=== PATIENT | male | born 1970 | race Caucasian/White ===

== ENCOUNTER 2016-12-09 06:08 | Inpatient (IN) | payer BC ==
[2016-11-25 11:14] VITALS: BMI 26.0
--- NOTE | 2016-11-25 11:40 | PAT Medication Instructions ---
Service Date Nov 25, 2016. Current Home Medication List Buprenorphine Hcl-Naloxone Hcl (Suboxone 8-2 Mg), 1 TAB SL NOON Citalopram Hydrobromide (Citalopram Hydrobromide), 1 TAB PO QAM Gabapentin (Neurontin), 300 MG PO TID Pantoprazole (Protonix), 40 MG PO QAM Ranitidine (Zantac), 300 MG PO HS PRN for Indigestion Zolpidem Tartrate (Ambien), 10 MG PO HS Medication Instructions For Your Scheduled Surgery - Check with surgeon/Dr. Cunningham for instructions: Buprenorphine Hcl-Naloxone Hcl (Suboxone 8-2 Mg), 1 TAB SL NOON - Take the following medications the morning of surgery with a sip of water: Gabapentin (Neurontin), 300 MG PO TID Pantoprazole (Protonix), 40 MG PO QAM Citalopram Hydrobromide (Citalopram Hydrobromide), 1 TAB PO QAM - Take the following medications as scheduled the night before surgery: Zolpidem Tartrate (Ambien), 10 MG PO HS Ranitidine (Zantac), 300 MG PO HS PRN for Indigestion (if needed) Gabapentin (Neurontin), 300 MG PO TID If you have any questions please call us at [phone] or [phone] or [phone]
[2016-11-25 12:11] LABS: BASO % 0.5 %; BASO ABS # 0.02 K/uL (0-0.2); COMPLETE YES; EOS % 1.1 %; HEMATOCRIT 40.9 % (42-52); IG% 0.2 %; LYMPH ABS # 1.45 K/uL (1.2-3.4); MEAN CELL VOLUME 90.1 fL (80-100); MEAN CORPUSCULAR HEMOGLOBIN 31.5 pg (25-34); MEAN PLATELET VOLUME 10.6 fL (7.4-10.4); MONO % 7.5 %; NEUT % 57.7 %; PLATELET COUNT 238 K/uL (130-400); RED BLOOD COUNT 4.54 M/uL (4.7-6.1); WHITE BLOOD COUNT 4.39 K/uL (4.8-10.8)
[2016-11-25 12:14] LABS: URINE APPEARANCE CLEAR (CLEAR); URINE BILIRUBIN NEG (NEG); URINE COLOR DK YELLOW; URINE NITRITE NEG (NEG); URINE SPECIFIC GRAVITY 1.028 (1.000-1.030); UROBILINOGEN NEG (NEG); ZZUR CULT IF INDIC CLEAN CATCH NO
--- NOTE | 2016-11-25 12:17 | DIAGNOSTIC IMAGING REPORT ---
CHEST 2 VIEWS ROUTINE CLINICAL HISTORY: 45 years-old Male presenting with preoperative assessment. TECHNIQUE: PA and lateral views of the chest were obtained. COMPARISON: None. FINDINGS: Cardiomediastinal silhouette normal. Lungs and pleural spaces clear. Osseous structures normal. Upper abdomen normal. IMPRESSION: 1. No acute cardiopulmonary disease. Electronically signed by: Terrell Batista M.D. 11/25/2016 12:16 PM Dictated Date/Time: 11/25/2016 12:16 PM
[2016-11-25 12:18] LABS: MANUAL MICROSCOPIC REQUIRED? NO; REVIEW REQ? NO
[2016-11-25 14:07] LABS: BUN/CREATININE RATIO 19.5 (10-20); CALCIUM 9.2 mg/dl (8.5-10.1); POTASSIUM 4.3 mmol/L (3.5-5.1)
[2016-12-09] VITALS (16 sets, daily range): BP systolic 143–186; BP diastolic 83–105; PULSE 63–93; TEMP 36.2–36.9; O2SAT 91–98; Ht 182.9 cm; Wt 89.2 kg
[~2016-12-09] VITALS: Ht 182.9 cm; Wt 89.2 kg
[~2016-12-09 06:08] MED LIST: BUPR1SUB23 SL; CEFAZOLIN 2000 MG/60 ML D5W IV SCH; CITA20TA4 PO; GABA-113 PO; LACTATED RINGER'S 1000ML 1,000 ML IV SCH; PANT40TA PO; RANI300T2 PO; ZOLP10TA PO
[2016-12-09] MEDS ORDERED: FENTANYL CITRATE INJ 50 MCG/1 ML 2 ML VIAL ONE ×6 (06:37→09:31)
[2016-12-09] MEDS ORDERED: MIDAZOLAM HCL 1 MG/ML 2ML VIAL ONE (06:37)
[2016-12-09] MEDS ORDERED: SODIUM CHLORIDE 0.9% PF 50 ML VIAL ONE (06:53)
[2016-12-09] MEDS ORDERED: BACITRACIN 50000 UNIT VIAL ONE (06:53)
--- NOTE | 2016-12-09 07:36 | History and Physical ---
History & Physical Date Dec 09, 2016. Chief Complaint Neck and arm pain History of Present Illness The patient is a 45 year old male with complaints of Additional History Hepatic Disease: No Endocrine Disorder: No Kidney Disease: No Hypertension: No Heart Disease: No Bleeding Tendencies: No Infectious Diseases: No Allergies Coded Allergies: Azithromycin (Verified Allergy, Unknown, SEVERE GI UPSET AND RASH, 12/09/16) Nitroglycerin (Verified Allergy, Unknown, SEVERE HEADACHE AND SYNCOPE, 12/09) Home Medications Scheduled Buprenorphine Hcl-Naloxone Hcl (Suboxone 8-2 Mg), 1 TAB SL NOON Citalopram Hydrobromide (Citalopram Hydrobromide), 1 TAB PO QAM Gabapentin (Neurontin), 300 MG PO TID Pantoprazole (Protonix), 40 MG PO QAM Zolpidem Tartrate (Ambien), 10 MG PO HS Scheduled PRN Ranitidine (Zantac), 300 MG PO HS PRN for Indigestion Physical Examination Skin: warm/dry, no rash Eyes: normal inspection, EOMI, sclerae normal ENT: normal ENT inspection, pharynx normal Head: normocephalic, atraumatic Neck: supple, no adenopathy, trachea midline Respiratory/Chest: lungs clear, normal breath sounds, no respiratory distress Cardiovascular: regular rate, rhythm, no edema, no murmur Abdomen / GI: normal bowel sounds, non tender Back: normal inspection Extremities: normal inspection, normal range of motion Neurologic/Psych: no motor/sensory deficits, alert, normal reflexes, oriented x 3 Diagnosis Cervical spinal stenosis Plan of Treatment ACDF C3 4
--- NOTE | 2016-12-09 07:36 | History & Physical Bridge Note ---
H&P Re-Evaluation Bridge Note: I have examined the patient, reviewed the History & Physical and in the interval since the performance of the History & Physical I have noted the following changes of clinical significance: No changes noted
[2016-12-09] MEDS ORDERED: HYDROmorphone INJ 2 MG/ML SYR/VIAL ONE ×2 (08:09→09:09)
[2016-12-09] MEDS ORDERED: ROCURONIUM BROMIDE 10 MG/ML 5 ML VIAL IV ONE (08:31)
[2016-12-09] MEDS ORDERED: DEXAMETHASONE SOD INJ 4 MG/ML VIAL ONE (08:31)
[2016-12-09] MEDS ORDERED: LIDOCAINE HCL 2% 2 ML VIAL (20MG/ML) ONE (08:31)
[2016-12-09] MEDS ORDERED: ONDANSETRON INJ 2 MG/ML 2 ML VIAL ONE ×3 (08:31→09:25)
[2016-12-09] MEDS ORDERED: PROPOFOL IV EMULSION 10 MG/ML 20 ML VIAL IV ONE ×2 (08:31→11:42)
[2016-12-09] MEDS ORDERED: FLOSEAL HEMOSTATIC MATRIX 5ML TOP ONE (09:06)
[2016-12-09] MEDS ORDERED: METOCLOPRAMIDE HCL INJ 5 MG/ML 2 ML VIAL ONE (09:18)
--- NOTE | 2016-12-09 09:22 | DIAGNOSTIC IMAGING REPORT ---
CERVICAL 2 OR 3 VIEWS CLINICAL HISTORY: ACDF C3-4 fusion TECHNIQUE: Image intensifier COMPARISON STUDY: None FINDINGS: Image intensifier utilized for an anterior C3-C4 fusion IMPRESSION: Image intensifier utilized for an anterior C3-C4 fusion The above report was generated using voice recognition software. It may contain grammatical, syntax or spelling errors. Electronically signed by: Ren Fernandez M.D. 12/09/2016 9:20 AM Dictated Date/Time: 12/09/2016 9:20 AM
[2016-12-09] MEDS ORDERED: NEOSTIGMINE METHYLSULFATE 1 MG/ML 10ML VIAL ONE (09:25)
[2016-12-09] MEDS ORDERED: ESMOLOL HCL 10 MG/ML 10 ML VIAL ONE (09:25)
[2016-12-09] MEDS ORDERED: GLYCOPYRROLATE INJ 0.2 MG/ML VIAL ONE (09:25)
--- NOTE | 2016-12-09 09:25 | [facility] Operative Report ---
Operative Report Operative Date Dec 09, 2016. Pre-Operative Diagnosis Cervical Spinal Stenosis Post-Operative Diagnosis Cervical Spinal Stenosis Procedure(s) Performed #1 anterior cervical discectomy bilateral foraminotomies C3 4. #2 anterior cervical arthrodesis C3 4. #3 placement of cortical allograft 7 mm in height filled with DBM C3 4. #4 application of lopez plate and screws across C3 4. Surgeon Dr. Pee Davis [employer] Project Manager Surgeon(s) Alpa Zuluaga PA-C Estimated Blood Loss 10ml Findings Cervical spinal stenosis Specimens None per surgeon Description of Procedure Patient was met with preoperatively case discussed all questions are dressed. That point patient was taken back to the operative suite after undergoing successful intubation placed in a supine position the Nicolas table head in [place] headholder. All bony prominences well-padded eyes inspected to ensure no external pressure. This point the anterior cervical spine was prepped and draped in normal sterile fashion. With the assistance of fluoroscopy identified the C3 4 disc space. A transverse incision was placed on the right anterior aspect of the cervical spine overlying this region. Sharp dissection with the assistance of bipolar electrocautery was performed onto an exposing the anterior cervical spine at C3 4. Self-retaining retractors placed. A complete discectomy of C3 4 was then performed out to the uncovertebral joints bilaterally. [place] distracting pins were utilized to assist us no visualization. I did remove all posterior annular fibers and longitudinal ligament performed bilateral foraminotomies. Endplates were then burred to subcortical bleeding bone and a 7 mm cortical R graft filled with DBM tapped in position. Distracting apparatus was removed. All anterior aspect burred to a smooth cortical surface. Lopez plate and screws applied with the assistance of fluoroscopy. Incision was in copious irrigated explored to ensure there is no damage to signing structures remaining bleeding. 10 round KELLY drain inserted. Incision closed with 2-0 Vicryl subcutaneous C 4 Monocryl for final skin closure. Steri-Strips sterile dressing placed. Patient we can take PACU stable condition. Please note Alpa Porter was present throughout the entire procedure involved in patient positioning complex portions of the procedure and final skin closure. I attest to the content of the Intraoperative Record and any orders documented therein. Any exceptions are noted below.
[2016-12-09] MEDS ORDERED: LORAZEPAM INJ 0.5 MG in SYRINGE 0.75 ML IV PRN (09:30)
[2016-12-09] MEDS ORDERED: ACETAMINOPHEN IV 100 ML IV PRN (09:30)
[2016-12-09] MEDS ORDERED: RANITIDINE HCL 150 MG TAB PO PRN (09:30)
[2016-12-09] MEDS ORDERED: ONDANSETRON INJ 2 MG/ML 2 ML VIAL IV PRN ×2 (09:30→09:45)
[2016-12-09] MEDS ORDERED: NALOXONE HCL 0.4 MG/1 ML VIAL/CARP IV PRN (09:30)
[2016-12-09] MEDS ORDERED: RACEPINEPHRINE 2.25% NEBU SOLN 0.5 ML VIAL INH PRN (09:30)
[2016-12-09] MEDS ORDERED: DEXAMETHASONE INJ 8 MG in SYRINGE 0 ML IV PRN (09:30)
[2016-12-09] MEDS ORDERED: MAGNESIUM HYDROXIDE SUSP 30 ML UDC PO PRN (09:30)
[2016-12-09] MEDS ORDERED: DO NOT ADMINISTER PNEUMOCOCCAL VACCINE PRN ×2 (09:30)
[2016-12-09] MEDS ORDERED: DiphenhydrAMINE HCL 50 MG/ML VIAL IV PRN ×3 (09:30→23:00)
[2016-12-09] MEDS ORDERED: LORAZEPAM 0.5 MG TAB PO PRN (09:30)
[2016-12-09] MEDS ORDERED: DO NOT ADMINISTER FLU VACCINE PRN ×3 (09:30)
[2016-12-09] MEDS ORDERED: HYDROmorphone INJ 0.5 MG/0.5 ML SYR IV PRN (09:30)
[2016-12-09] MEDS ORDERED: LABETALOL HCL IV 5 MG/ML 20ML IV ONE (09:43)
[2016-12-09] MEDS ORDERED: FENTANYL CITRATE INJ 50 MCG/1 ML 2 ML VIAL IV PRN (09:45)
[2016-12-09] MEDS ORDERED: EpHEDrine SULFATE INJ 50 MG/ML AMP IV PRN (09:45)
[2016-12-09] MEDS ORDERED: LABETALOL HCL IV 5 MG/ML 20ML IV PRN (09:45)
[2016-12-09] MEDS ORDERED: HYDROmorphone INJ 1 MG/ML SYR IV PRN (09:45)
[2016-12-09] MEDS ORDERED: MEPERIDINE HCL 25 MG/ML CARP IV PRN (09:45)
[2016-12-09] MEDS ORDERED: ATROPINE SULFATE 0.1 MG/ML 5ML SYR IV PRN (09:45)
[2016-12-09] MEDS ORDERED: HYDROmorphone INJ 1 MG/ML SYR ONE (09:54)
[2016-12-09] MEDS ORDERED: NURSING VERBAL MED ORDER ONE (10:00)
--- NOTE | 2016-12-09 10:25 | Anesthesiology Progress Note ---
Anesthesia Post Op Note Date & Time Dec 09, 2016 at 10:25 Vital Signs Pain Intensity: 7 Vital Signs Past 12 Hours Date Time Temp Pulse Resp B/P (MAP) Pulse Ox O2 Delivery O2 Flow Rate FiO2 12/09/16 10:15 36.6 72 20 151/94 97 Nasal Cannula 4 12/09/16 10:05 78 16 150/96 98 Nasal Cannula 4 12/09/16 09:55 69 18 154/99 98 Nasal Cannula 4 12/09/16 09:45 66 19 158/99 97 Nasal Cannula 4 12/09/16 09:35 77 20 164/106 97 Oxymask 10 12/09/16 09:25 80 20 168/108 97 Oxymask 10 12/09/16 09:16 36.0 86 16 165/107 96 Oxymask 10 12/09/16 06:36 36.2 73 20 159/93 97 Room Air Notes Mental Status: alert / awake / arousable, participated in evaluation Pt Amnestic to Procedure: Yes Nausea / Vomiting: adequately controlled Pain: adequately controlled Airway Patency, RR, SpO2: stable & adequate BP & HR: stable & adequate Hydration State: stable & adequate Anesthetic Complications: no major complications apparent
[2016-12-09] MEDS: LACTATED RINGER'S 1000ML 1,000 ML IV SCH ×3 (11:19→23:26)
[2016-12-09] MEDS: HYDROmorphone INJ 1 MG/ML SYR IV PRN ×4 (12:54→23:25)
[2016-12-09] MEDS: GABAPENTIN 300 MG CAP PO SCH ×2 (13:56→21:25)
[2016-12-09] MEDS: OXYCODONE HCL IR 5 MG TAB (IMMEDIATE RELEASE) PO PRN ×3 (13:57→21:39)
[2016-12-09] MEDS ORDERED: SCOPOLAMINE 1.5 MG TDSY TD SCH (14:00)
[2016-12-09] MEDS: CHECK SCOPOLAMINE PATCH PLACEMENT SCH ×2 (15:46→23:45)
[2016-12-09] MEDS: CEFAZOLIN IV 2,000 MG in DEXTROSE 5% 50ML 50 ML IV SCH ×2 (15:46→23:25)
[2016-12-09] MEDS: DEXAMETHASONE INJ 6 MG in SYRINGE 0 ML IV SCH ×2 (17:25→23:45)
[2016-12-09 20:51] LABS: COMPLETE YES; IG% 0.2 %; LYMPH % 6.1 %; LYMPH ABS # 0.61 K/uL (1.2-3.4); MEAN CELL VOLUME 91.5 fL (80-100); MEAN CORPUSCULAR HEMOGLOBIN 31.2 pg (25-34); MEAN PLATELET VOLUME 10.6 fL (7.4-10.4); NEUT % 92.7 %; PLATELET COUNT 209 K/uL (130-400); RED BLOOD COUNT 4.59 M/uL (4.7-6.1); WHITE BLOOD COUNT 9.95 K/uL (4.8-10.8)
[2016-12-09 20:56] LABS: BUN/CREATININE RATIO 10.9 (10-20); CALCIUM 9.4 mg/dl (8.5-10.1); CREATININE 1.1 mg/dl (0.60-1.40); MAGNESIUM 2.1 mg/dl (1.8-2.4); POTASSIUM 4.2 mmol/L (3.5-5.1)
[2016-12-09 20:58] LABS: ALB/GLOB RATIO 1.2 (0.9-2)
[2016-12-09] MEDS ORDERED: ZOLPIDEM TARTRATE 10 MG TAB PO SCH (21:00)
[2016-12-09] MEDS: DOCUSATE SODIUM 100 MG CAP PO SCH (21:25)
--- NOTE | 2016-12-09 23:37 | Medical Consult ---
Consultation Date of Consultation: Dec 09, 2016. Attending Physician: Pee Davis D.O. Reason for Consultation: HTN History of Present Illness 45 y/o M with borderline HTN on no BP medications, s/p cervical stenosis surgery consult for elevated BP denied any numbness or tingling, motor weakness, headaches, blurry vision or slurred speech Family History noncontributory Social History Smoking Status: Never Smoker Smokeless Tobacco Use: No Alcohol Use: none Drug Use: none Allergies Coded Allergies: Azithromycin (Verified Allergy, Unknown, SEVERE GI UPSET AND RASH, 12/09/16) Nitroglycerin (Verified Allergy, Unknown, SEVERE HEADACHE AND SYNCOPE, 12/09) Current Inpatient Medications Current Inpatient Medications Medications (Trade) Dose Ordered Sig/Anita Route Start Time Stop Time Status Last Admin Dose Admin Lactated Ringer's 1,000 ml @ 15 mls/hr Q24H IV 12/09/16 06:00 12/10/16 05:59 12/09/16 06:40 15 MLS/HR Racepinephrine (Raccemic Epinephrine 2.25% 0.5ML Neb) 0.5 ml ONE PRN INH 12/09/16 09:30 12/11/16 09:29 Acetaminophen 100 ml @ 400 mls/hr Q8H PRN IV 12/09/16 09:30 01/08/17 09:29 Hydromorphone HCl (Dilaudid Inj) 0.5 mg Q3H PRN IV 12/09/16 09:30 12/23/16 09:29 Magnesium Hydroxide (Milk Of Magnesia Susp) 30 ml DAILY PRN PO 12/09/16 09:30 01/08/17 09:29 Docusate Sodium (coLACE CAP) 100 mg BID PO 12/09/16 21:00 01/08/17 20:59 12/09/16 21:25 100 MG Ondansetron HCl (Zofran Inj) 4 mg Q6 PRN IV 12/09/16 09:30 01/08/17 09:29 Scopolamine (Transderm-Scop Patch) 1.5 mg Q72H TD 12/09/16 14:00 01/08/17 13:59 12/09/16 13:58 1.5 MG Cefazolin Sodium 2000 mg/Dextrose 60 ml @ 100 mls/hr Q8H IV 12/09/16 16:00 12/10/16 08:35 12/09/16 23:25 100 MLS/HR Lorazepam (Ativan Tab) 0.5 mg Q8H PRN PO 12/09/16 09:30 01/08/17 09:29 Lorazepam 0.5 mg/ Syringe 1 ml @ 1 mls/min Q8H PRN IV 12/09/16 09:30 01/08/17 09:29 12/09/16 18:22 1 MLS/MIN Diphenhydramine HCl (Benadryl Inj) 25 mg Q6H PRN IV 12/09/16 09:30 01/08/17 09:29 Dexamethasone Sodium Phosphate 6 mg/Syringe 1.5 ml @ 1 mls/min Q8H IV 12/09/16 16:30 12/10/16 08:32 12/09/16 17:25 1 MLS/MIN Pneumococcal Polysaccharide Vaccine 1 ea PRN PRN N/A 12/09/16 09:30 01/08/17 09:29 Influenza Virus Vacc Triv Types A&B 1 ea PRN PRN N/A 12/09/16 09:30 01/08/17 09:29 Oxycodone HCl (Roxicodone Immediate Rel Tab) 5mg for pain scale 4-6 1... Q4H PRN PO 12/09/16 09:30 12/23/16 09:29 12/09/16 21:39 10 MG Polyethylene (Miralax Powder Packet) 17 gm DAILY PO 12/12/16 09:00 01/11/17 08:59 Bisacodyl (Dulcolax Tab) 5 mg DAILY PRN PO 12/11/16 06:00 01/10/17 05:59 Bisacodyl (Dulcolax Supp) 10 mg DAILY PRN [place] 12/11/16 06:00 01/10/17 05:59 Dexamethasone Sodium Phosphate 8 mg/Syringe 2 ml @ 1 mls/min ONE PRN IV 12/09/16 09:30 12/11/16 09:29 Naloxone HCl (Narcan Inj) 0.1 mg Q5M PRN IV 12/09/16 09:30 01/08/17 09:29 Miscellaneous (Remove Transderm-Scop Patch) 1 ea Q72H N/A 12/12/16 13:59 01/11/17 13:58 Miscellaneous Information (Check Scopolamine Patch Placement) 1 ea QS N/A 12/09/16 16:00 01/08/17 15:59 12/09/16 15:46 1 EA Citalopram Hydrobromide (celeXA TAB) 20 mg QAM PO 12/10/16 09:00 01/09/17 08:59 Gabapentin (Neurontin Cap) 300 mg TID PO 12/09/16 14:00 01/08/17 13:59 12/09/16 21:25 300 MG Pantoprazole Sodium (Protonix Tab) 40 mg QAM PO 12/10/16 09:00 01/09/17 08:59 Zolpidem Tartrate (Ambien Tab) 10 mg HS PO 12/09/16 21:00 01/08/17 20:59 12/09/16 21:25 10 MG Ranitidine HCl (zANTac TAB) 300 mg HS PRN PO 12/09/16 09:30 01/08/17 09:29 Meperidine HCl (Demerol Inj) 25 mg Q5M PRN IV 12/09/16 09:45 12/10/16 09:44 Lactated Ringer's 1,000 ml @ 150 mls/hr Q6H40M IV 12/09/16 11:00 12/10/16 10:59 12/09/16 23:26 150 MLS/HR Hydromorphone HCl (Dilaudid Inj) 1 mg Q3H PRN IV 12/09/16 11:30 12/23/16 11:29 12/09/16 23:25 1 MG Diphenhydramine HCl (Benadryl Inj) 25 mg Q3H PRN IV 12/09/16 23:00 01/08/17 22:59 12/09/16 23:24 25 MG Review of Systems Constitutional: No fever, No chills Eyes: No worsening of vision ENT: No hearing loss Respiratory: No cough, No sputum, No shortness of breath, No dyspnea on exertion Cardiovascular: No chest pain Abdomen: No pain, No nausea Musculoskeletal: No joint pain Genitourinary - Male: No hematuria Neurologic: No memory loss, No paralysis, No weakness Psychiatric: No depression symptoms Endocrine: No fatigue Physical Exam Date Time Temp Pulse Resp B/P (MAP) Pulse Ox O2 Delivery O2 Flow Rate FiO2 12/09/16 21:27 36.7 93 17 178/98 91 Nasal Cannula 2.0 Humidified Oxygen 12/09/16 19:55 Nasal Cannula 2.0 Humidified Oxygen 12/09/16 19:45 36.4 70 18 163/98 97 Nasal Cannula 2.0 Humidified Oxygen 12/09/16 19:18 72 12 96 Nasal Cannula 2.0 12/09/16 18:36 186/105 (132) 12/09/16 17:45 36.4 87 16 165/105 95 Nasal Cannula 2.0 12/09/16 15:37 36.7 64 16 145/83 (103) 97 Nasal Cannula 2.0 12/09/16 15:25 78 12 97 Nasal Cannula 2.0 12/09/16 14:22 Nasal Cannula 2.0 Humidified Oxygen 12/09/16 13:47 36.9 79 18 148/84 96 Nasal Cannula 2.0 12/09/16 12:48 36.3 88 18 155/95 96 Nasal Cannula 2.0 12/09/16 11:48 36.8 80 16 143/84 (103) 97 Nasal Cannula 2.0 12/09/16 11:15 63 16 150/86 (107) 98 Nasal Cannula 2.0 12/09/16 11:11 73 12 97 Nasal Cannula 2.0 12/09/16 10:45 98 Nasal Cannula 2.0 12/09/16 10:45 36.8 71 14 158/97 98 Nasal Cannula 2.0 12/09/16 10:45 98 Nasal Cannula 2.0 12/09/16 10:25 71 16 145/96 97 Nasal Cannula 4 12/09/16 10:15 36.6 72 20 151/94 97 Nasal Cannula 4 12/09/16 10:05 78 16 150/96 98 Nasal Cannula 4 12/09/16 09:55 69 18 154/99 98 Nasal Cannula 4 12/09/16 09:45 66 19 158/99 97 Nasal Cannula 4 12/09/16 09:35 77 20 164/106 97 Oxymask 10 12/09/16 09:25 80 20 168/108 97 Oxymask 10 12/09/16 09:16 36.0 86 16 165/107 96 Oxymask 10 9/6/17 06:36 36.2 73 20 159/93 97 Room Air General Appearance: WD/WN, no apparent distress Eyes: normal inspection ENT: hearing grossly normal Neck: supple Respiratory/Chest: lungs clear, normal breath sounds Cardiovascular: regular rate, rhythm Abdomen/GI: normal bowel sounds, non tender, soft Neurologic/Psych: alert, normal mood/affect, oriented x 3 Laboratory Results Last 24 Hours Test 12/09/16 20:18 White Blood Count 9.95 K/uL Red Blood Count 4.59 M/uL Hemoglobin 14.3 g/dL Hematocrit 42.0 % Mean Corpuscular Volume 91.5 fL Mean Corpuscular Hemoglobin 31.2 pg Mean Corpuscular Hemoglobin Concent 34.0 g/dl Platelet Count 209 K/uL Mean Platelet Volume 10.6 fL Neutrophils (%) (Auto) 92.7 % Lymphocytes (%) (Auto) 6.1 % Monocytes (%) (Auto) 1.0 % Eosinophils (%) (Auto) 0.0 % Basophils (%) (Auto) 0.0 % Neutrophils # (Auto) 9.22 K/uL Lymphocytes # (Auto) 0.61 K/uL Monocytes # (Auto) 0.10 K/uL Eosinophils # (Auto) 0.00 K/uL Basophils # (Auto) 0.00 K/uL RDW Standard Deviation 41.2 fL RDW Coefficient of Variation 12.2 % Immature Granulocyte % (Auto) 0.2 % Immature Granulocyte # (Auto) 0.02 K/uL Sodium Level 136 mmol/L Potassium Level 4.2 mmol/L Chloride Level 101 mmol/L Carbon Dioxide Level 27 mmol/L Anion Gap 8.0 mmol/L Blood Urea Nitrogen 12 mg/dl Creatinine 1.10 mg/dl Est Creatinine Clear Calc Drug Dose 91.1 ml/min Estimated GFR () 92.2 Estimated GFR (Non- 79.5 BUN/Creatinine Ratio 10.9 Random Glucose 175 mg/dl Calcium Level 9.4 mg/dl Magnesium Level 2.1 mg/dl Total Bilirubin 0.4 mg/dl Aspartate Amino Transf (AST/SGOT) 14 U/L Alanine Aminotransferase (ALT/SGPT) 17 U/L Alkaline Phosphatase 83 U/L Total Protein 7.4 gm/dl Albumin 4.0 gm/dl Globulin 3.4 gm/dl Albumin/Globulin Ratio 1.2 Assessment & Plan Elevated BP: - BPs have been in 170s/90s - likely sec to withdrawal from Suboxone - started on clonidine 0.2 mg BID s/p Cervical stenosis surgery: - management per primary team Neuropathy: - continue gabapentin GERD: - continue home meds full code Attending Addendum: I have physically seen and examined this patient, have directed the resident's medical activities, and agree with the H&P as noted above with the following exceptions as noted. The patient is awake, alert and oriented 3, well-developed and well-nourished , normocephalic and atraumatic, lying in bed and in mild distress secondary to pain. HEENT--PERRL, EOMI, mucous membranes and oropharynx normal. Neck--supple, no JVD or bruits, thyroid normal, trachea midline, no adenopathy. Heart--normal S1 and S2, no extra beats, no murmurs, rubs or gallops. Lungs--clear bilaterally with good air movement, no respiratory distress, no accessory muscle use. Abdomen--normal bowel sounds and soft, nontender and nondistended, no hernias or masses, no organomegaly. Extremities--no cyanosis, clubbing or edema. There are good distal pulses b/l. Dermatologic--normal skin turgor, normal color, warm and dry, no abnormal lymph nodes, no rash. Neurologic--cranial nerves II through XII grossly intact, motor and sensory examination normal. Rheumatologic--normal range of motion, nontender, muscles and joints. Psychiatric--normal affect. Assessment and Plan: Volatile blood pressure--likely secondary to uncontrolled pain which is secondary to being off Suboxone for 5 days-- Primary service to more aggressively control pain. Place on clonidine 0.2 mg now and by mouth twice a day. Labs ordered and reviewed were a CBC with differential, chemistry profile and magnesium levels. Continue gabapentin for GPN.
[2016-12-10] VITALS (7 sets, daily range): BP systolic 112–157; BP diastolic 71–103; PULSE 51–74; TEMP 36.5; O2SAT 94–97
[2016-12-10] MEDS: OXYCODONE HCL IR 5 MG TAB (IMMEDIATE RELEASE) PO PRN ×2 (01:54→06:00)
[2016-12-10] MEDS ORDERED: CLONIDINE HCL 0.1 MG TAB PO STA (01:59)
[2016-12-10] MEDS: HYDROmorphone INJ 1 MG/ML SYR IV PRN (04:02)
[2016-12-10] MEDS: LACTATED RINGER'S 1000ML 1,000 ML IV SCH (05:49)
[2016-12-10] MEDS: CHECK SCOPOLAMINE PATCH PLACEMENT SCH (07:17)
--- NOTE | 2016-12-10 07:28 | Orthopedic Progress Note ---
Orthopedic Progress Note Date of Service Dec 10, 2016. Subjective Post OP Day: 1 Reports: feeling well Additional Notes: Ben is postoperative day 1 ACDF. He is seen today In conjunction with his in his hospital room. Has complaints of posterior cervical pain. No radicular arm pain. Notes mild dysphonic but is able to eat. He is up and ambulatory. No other complaints. Drain output left shift was 5 mL. Objective calves soft nontender, N/V intact, dressing C/D/I, A&O x3 Patient is alert and oriented 3. No obvious distress. His cervical incisions clean dry and intact. Strength is intact bilateral upper extremities. Date Time Temp Pulse Resp B/P (MAP) Pulse Ox O2 Delivery O2 Flow Rate FiO2 12/10/16 05:45 36.5 61 20 144/89 95 Room Air 12/10/16 03:57 74 16 96 Nasal Cannula 2.0 12/10/16 03:45 36.5 61 16 137/100 97 Nasal Cannula 2.0 Humidified Oxygen 12/10/16 01:45 36.5 71 16 157/103 95 Nasal Cannula 2.0 Humidified Oxygen 12/09/16 23:40 36.6 75 16 175/91 95 Nasal Cannula 2.0 Humidified Oxygen 12/09/16 23:20 Nasal Cannula 2.0 Humidified Oxygen 12/09/16 23:18 78 20 98 Room Air 12/09/16 21:27 36.7 93 17 178/98 91 Nasal Cannula 2.0 Humidified Oxygen 12/09/16 19:55 Nasal Cannula 2.0 Humidified Oxygen 12/09/16 19:45 36.4 70 18 163/98 97 Nasal Cannula 2.0 Humidified Oxygen 12/09/16 19:18 72 12 96 Nasal Cannula 2.0 12/09/16 18:36 186/105 (132) 12/09/16 17:45 36.4 87 16 165/105 95 Nasal Cannula 2.0 12/09/16 15:37 36.7 64 16 145/83 (103) 97 Nasal Cannula 2.0 12/09/16 15:25 78 12 97 Nasal Cannula 2.0 12/09/16 14:22 Nasal Cannula 2.0 Humidified Oxygen 12/09/16 13:47 36.9 79 18 148/84 96 Nasal Cannula 2.0 12/09/16 12:48 36.3 88 18 155/95 96 Nasal Cannula 2.0 12/09/16 11:48 36.8 80 16 143/84 (103) 97 Nasal Cannula 2.0 12/09/16 11:15 63 16 150/86 (107) 98 Nasal Cannula 2.0 12/09/16 11:11 73 12 97 Nasal Cannula 2.0 12/09/16 10:45 98 Nasal Cannula 2.0 12/09/16 10:45 36.8 71 14 158/97 98 Nasal Cannula 2.0 12/09/16 10:45 98 Nasal Cannula 2.0 12/09/16 10:25 71 16 145/96 97 Nasal Cannula 4 12/09/16 10:15 36.6 72 20 151/94 97 Nasal Cannula 4 12/09/16 10:05 78 16 150/96 98 Nasal Cannula 4 12/09/16 09:55 69 18 154/99 98 Nasal Cannula 4 12/09/16 09:45 66 19 158/99 97 Nasal Cannula 4 12/09/16 09:35 77 20 164/106 97 Oxymask 10 12/09/16 09:25 80 20 168/108 97 Oxymask 10 12/09/16 09:16 36.0 86 16 165/107 96 Oxymask 10 Laboratory Results 24 Hours: Test 12/09/16 20:18 White Blood Count 9.95 K/uL Red Blood Count 4.59 M/uL Hemoglobin 14.3 g/dL Hematocrit 42.0 % Mean Corpuscular Volume 91.5 fL Mean Corpuscular Hemoglobin 31.2 pg Mean Corpuscular Hemoglobin Concent 34.0 g/dl Platelet Count 209 K/uL Mean Platelet Volume 10.6 fL Neutrophils (%) (Auto) 92.7 % Lymphocytes (%) (Auto) 6.1 % Monocytes (%) (Auto) 1.0 % Eosinophils (%) (Auto) 0.0 % Basophils (%) (Auto) 0.0 % Neutrophils # (Auto) 9.22 K/uL Lymphocytes # (Auto) 0.61 K/uL Monocytes # (Auto) 0.10 K/uL Eosinophils # (Auto) 0.00 K/uL Basophils # (Auto) 0.00 K/uL Assessment & Plan Assessment: Postoperative day 1 status post ACDF Plan: We will DC J drain. Continue his ambulation. Continue pain control. We'll discharge home later on today. All questions were answered in detail. Inhouse Planning DVT Prophylaxis: BRIAN Cisneross Discharge Planning Discharge Planning: home DVT Prophylaxis: Blayne
--- NOTE | 2016-12-10 07:30 | Discharge Summary ---
Orthopedic Discharge Summary Admission Date/Reason Dec 09, 2016 at 07:30 Cervical Spinal Stenosis. Discharge Date/Disposition Dec 10, 2016 Home Diagnosis Principal Diagnosis: Cervical spinal stenosis Procedure(s) Performed ACDF C3 4 Medication Reconciliation New Medications: Oxycodone HCl (Oxycodone HCl) 5 Mg Tab 5 MG PO Q4H PRN for moderate-severe pain, #30 TAB Continued Medications: Buprenorphine Hcl-Naloxone Hcl (Suboxone 8-2 Mg) 1 Sub Sub 1 TAB SL NOON Citalopram Hydrobromide (Citalopram Hydrobromide) 20 Mg Tab 1 TAB PO QAM for 90 Days, #90 TAB 3 Refills Gabapentin (Neurontin) 300 Mg Cap 300 MG PO TID, CAP Pantoprazole (Protonix) 40 Mg Tab 40 MG PO QAM, #30 TAB Ranitidine (Zantac) 300 Mg Tab 300 MG PO HS PRN for Indigestion, TAB Zolpidem Tartrate (Ambien) 10 Mg Tab 10 MG PO HS, TAB Admission Physical Exam As per Admitting History & Physical. Hospital Course Patient had an uneventful hospital course. Radicular arm complaints resolved postoperatively. Notes mild dysphagia but is tolerating solid as well as liquids. Ambulating independently. Therefore was discharged home on postoperative day 1. Discharge Instructions Please refer to the electronic Patient Visit Report (Discharge Instructions) for additional information.
[2016-12-10] MEDS ORDERED: RXC5 PO (07:31)
--- NOTE | 2016-12-10 07:34 | Discharge Instructions ---
Discharge Instructions Date of Service Dec 10, 2016. Admission Reason for Admission: Cervical Spinal Stenosis Discharge Discharge Diagnosis / Problem: s/p Anterior Cervical Discectomy anf Fusion C3-4 Discharge Goals Goal(s): Decrease discomfort, Improve function Activity Recommendations Activity Limitations: per Instructions/Follow-up section Lifting Limitations: no more than 5 pounds Shower/Bathe: tomorrow Driving or Machine Use: no driving . Instructions / Follow-Up Instructions / Follow-Up ACTIVITY RECOMMENDATIONS: SELF CARE INSTRUCTIONS AFTER CERVICAL FUSIONS 1. No smoking. Smoking drastically decreases the chance of a solid fusion. 2. No bending, lifting more than 5 pounds, or twisting (roll like a log when turning in bed). 3. You may shower 3 days after surgery. Thoroughly dry wound. Do not soak in the tub. 4. Cervical collar: Must be worn at all times including sleeping. You may remove the brace only to bath, eat and if you are sitting in a recliner. 5. Please walk as much as you can for exercise. Gradually increase the distance that you walk as your endurance increases. SPECIAL CARE INSTRUCTIONS: VERY IMPORTANT TO READ AND REVIEW A. Do not take any anti-inflammatory medications (i.e. Indocin, Advil, Aspirin, Naprosyn, Aleve, Motrin, etc.) as these may inhibit the chance of a solid fusion. Tylenol is okay to take. B. Your surgical incision has been closed with a cosmetic suture under the skin that will dissolve in about 6 weeks. In 14 days, you can use a pair of clean scissors and cut the suture that is left outside of the skin at the ends of your incision. C. Complications are uncommon, but please contact us if you have any signs or symptoms of: 1. wound infection (fever higher than 102.5 degrees F, redness, separation of wound, drainage, or increasing pain from the incision) 2. blood clots in legs (pain, swelling, redness and warmth in legs) 3. urinary tract infection (fever higher than 102.5 degrees, burning upon urination or increased frequency of urination) 4. nerve problems (inability to walk on your toes or heels, numbness, loss of bowel or bladder control) 5. any other symptoms that concern you. D. Please call the office at if you have any concerns or questions about your operation or recovery. MANAGING PAIN AFTER SPINAL SURGERY 1. Narcotic medication is intended for short-term use and will be provided for surgical pain. Surgical pain usually lasts for a period of 4-6 weeks. Narcotic medication includes Percocet, Vicodin, Darvocet, Tylenol #3 or Lortab. 2. Longer-term pain is more appropriately treated with non-narcotic medication such as Tylenol ES. 3. Muscle spasm is not appropriately treated with narcotics. Muscle relaxers such as Soma, Flexeril or Skelaxin can be used along with Tylenol ES. 4. Remember that we all live with some "aches and pains". This is not unusual or uncommon after an injury or as we get older. 5. We will provide appropriate medication within the normal guidelines of their prescribed use. We will also be very cautious and aware of potential abuse and extended duration of patients' medication needs. 6. Please allow 2-3 days to process refills. Prescriptions will not be mailed but must be picked up at the office. FOLLOW UP VISIT: Keep your scheduled follow-up appointment. Any questions, please call the office at . Current Hospital Diet Patient's current hospital diet: Full Liquid Diet Discharge Diet Recommended Diet: Full Liquid Diet Procedures Procedures Performed: #1 anterior cervical discectomy bilateral foraminotomies C3 4. #2 anterior cervical arthrodesis C3 4. #3 placement of cortical allograft 7 mm in height filled with DBM C3 4. #4 application of boateng plate and screws across C3 4. Pending Studies Studies pending at discharge: no Medical Emergencies . Who to Call and When: Medical Emergencies: If at any time you feel your situation is an emergency, please call 911 immediately. . Non-Emergent Contact Non-Emergency issues call your: Primary Care Provider, Surgeon . "Provider Documentation" section prepared by Alpa Porter. . VTE Core Measure Inpt VTE Proph given/why not?: Silvano Schroeder
[2016-12-10] MEDS: DEXAMETHASONE INJ 6 MG in SYRINGE 0 ML IV SCH (08:14)
[2016-12-10] MEDS: CEFAZOLIN IV 2,000 MG in DEXTROSE 5% 50ML 50 ML IV SCH (08:15)
[2016-12-10] MEDS: DOCUSATE SODIUM 100 MG CAP PO SCH (08:20)
[2016-12-10] MEDS: GABAPENTIN 300 MG CAP PO SCH (08:20)
[2016-12-10] MEDS: CITALOPRAM 20 MG TAB PO SCH ×2 (08:21→08:22)
[2016-12-10] MEDS ORDERED: PANTOprazole SOD 40 MG TAB PO SCH (09:00)
[2016-12-10] MEDS ORDERED: CLONIDINE HCL 0.1 MG TAB PO SCH (09:00)
--- NOTE | 2016-12-10 09:18 | Anesthesiology Progress Note ---
Anesthesia Post Op Note Date & Time Dec 10, 2016 at 09:18 Vital Signs Vital Signs Past 12 Hours Date Time Temp Pulse Resp B/P (MAP) Pulse Ox O2 Delivery O2 Flow Rate FiO2 12/10/16 07:48 51 16 97 Room Air 12/10/16 05:45 36.5 61 20 144/89 95 Room Air 12/10/16 03:57 74 16 96 Nasal Cannula 2.0 12/10/16 03:45 36.5 61 16 137/100 97 Nasal Cannula 2.0 Humidified Oxygen 12/10/16 01:45 36.5 71 16 157/103 95 Nasal Cannula 2.0 Humidified Oxygen 12/09/16 23:40 36.6 75 16 175/91 95 Nasal Cannula 2.0 Humidified Oxygen 12/09/16 23:20 Nasal Cannula 2.0 Humidified Oxygen 12/09/16 23:18 78 20 98 Room Air 12/09/16 21:27 36.7 93 17 178/98 91 Nasal Cannula 2.0 Humidified Oxygen Notes Mental Status: alert / awake / arousable, participated in evaluation Pt Amnestic to Procedure: Yes Nausea / Vomiting: adequately controlled Pain: adequately controlled Airway Patency, RR, SpO2: stable & adequate BP & HR: stable & adequate Hydration State: stable & adequate Anesthetic Complications: no major complications apparent
[2016-12-11] MEDS ORDERED: BISACODYL 5 MG TABEC PO PRN (06:00)
[2016-12-11] MEDS ORDERED: BISACODYL 10 MG SUPP PR PRN (06:00)
[2016-12-12] MEDS ORDERED: POLYETHYLENE (MIRALAX) 17 GM PACK PO SCH (09:00)
== END 2016-12-10 11:45 | disposition home or self-care (01) | DRG 473 ==
LOC: C.ACU 06:08 → C.3E 07:30 → ENRESERV 10:10
PROVIDERS: ADMIT Orthopaedic Surgery Orthopaedic Surgery of the Spine; ATTEND Orthopaedic Surgery Orthopaedic Surgery of the Spine
PROC: 0RG Upper Joints, Fusion (ICD-10-PCS; principal; 2016-12-09 07:45)
PROC: 0RT30ZZ Resection of Cervical Vertebral Disc, Open Approach (ICD-10-PCS; principal; 2016-12-09 07:45)
DX: M48.02 Spinal stenosis, cervical region (principal); R03.0 Elevated blood-pressure reading, without diagnosis of hypertension; G62.9 Polyneuropathy, unspecified; K21.9 Gastro-esophageal reflux disease without esophagitis